=== PATIENT | female | born 1960 | race Caucasian/White ===

== ENCOUNTER 2020-06-23 11:23 | Emergency (ER) | payer OTHER ==
[~2020-06-23] VITALS: Ht 170.2 cm; Wt 92.0 kg
[2020-06-23 11:47] VITALS: BP 152/81
--- NOTE | 2020-06-23 13:03 | RAD ---
Three-view left foot study Clinical indications: Left foot pain FINDINGS: No acute fracture or dislocation or lytic process is seen. No periosteal reaction is eviden t. Tiny plantar spur of the calcaneus is seen. IMPRESSION: No acute osseous abnormality. Electronically signed by: Jas Mijares MD (06/23/2020 1:01 PM) [id number]
--- NOTE | 2020-06-23 13:39 | PHYS DOC ---
Past Medical History Past Medical History: Depression Past Surgical History: Tonsillectomy Additional Past Surgical Histo: craniotomy, R hand sx Smoking Status: Current Every Day Smoker Alcohol Use: Occasionally General Adult EDM: Chief Complaint: FOOT INJURY PAIN HPI: HPI: Patient is a 59 year old female who presents to the ED today complaining of a sharp constant 10 out of 10 left foot pain that began 2 months ago after she fell. Patient reports being seen at [facility] initially when the injury occurred, she states they did not do anything for her. Patient states the pain is worse on weightbearing. Denies anything relieving the pain. Review of Systems: Review of Systems: Constitutional: Denies fever or chills. [] Musculoskeletal: Reports left foot pain Integument: Denies rash. [] Neurologic: Denies headache, focal weakness or sensory changes. [] Psychiatric: Denies depression or anxiety. [] Heart Score: Risk Factors: Risk Factors: DM, Current or recent (<one month) smoker, HTN, HLP, family history of CAD, obesity. Risk Scores: Score 0 - 3: 2.5% MACE over next 6 weeks - Discharge Home Score 4 - 6: 20.3% MACE over next 6 weeks - Admit for Clinical Observation Score 7 - 10: 72.7% MACE over next 6 weeks - Early Invasive Strategies Allergies: Allergies: Allergies Coded Allergies Type Severity Reaction Last Updated Verified No Known Drug Allergies 06/23/20 No Physical Exam: PE: Constitutional: Well developed, well nourished, no acute distress, non-toxic appearance. [] [] Skin: Warm, dry, no erythema, no rash. [] Back: No tenderness, no CVA tenderness. [] Extremities: Left foot with no obvious deformity, no edema, no ecchymosis. Tenderness on top of the foot. No navicular bone tenderness, no tenderness on the base of the fifth metatarsal. Full range of motion to the foot and toes. +2 left pedal pulse. Cap refill less than 2 seconds to left toes Neurologic: Alert and oriented X 3, normal motor function, normal sensory function, no focal deficits noted. [] Psychologic: Affect normal, judgement normal, mood normal. [] Current Patient Data: Vital Signs: Vital Signs Date Time Temp Pulse Resp B/P (MAP) Pulse Ox O2 Delivery O2 Flow Rate FiO2 06/23/20 11:47 97.5 87 16 152/81 (104) 97 Room Air 97.5 EKG: EKG: [] Radiology/Procedures: Radiology/Procedures: []PATIENT: CYNTHIA BAL EACCOUNT: [id number]#: [id number] : 1960 LOCATION: ER AGE: 59 SEX: F EXAM STATUS: REG ER ORD. PHYSICIAN: NITA GUAJARDO APRN REASON: pain PROCEDURE: FOOT LEFT 3V Three-view left foot study Clinical indications: Left foot pain FINDINGS: No acute fracture or dislocation or lytic process is seen. No perios teal reaction is evident. Tiny plantar spur of the calcaneus is seen. IMPRESSION: No acute osseous abnormality. Electronically signed by: Jas Mijares MD (06/23/2020 1:01 PM) [id number] DICTATED and SIGNED BY: JAS MIJARES MD DATE: 06/23/20 [id number] 0 Course & Med Decision Making: Course & Med Decision Making Pertinent Labs and Imaging studies reviewed. (See chart for details) This is a 59-year-old female patient presenting to the ED today complaining of left foot pain for 2 months, reports falling 2 months ago. Right foot x-rays are negative for any acute findings, discharged to home. Follow-up with orthopedic doctor. Pavithra Disclaimer: Pavithra Disclaimer: This electronic medical record was generated, in whole or in part, using a voice recognition dictation system. Departure Departure Impression: Primary Impression: Fall Qualified Codes: W19.XXXD - Unspecified fall, subsequent encounter Additional Impression: Foot pain, left Disposition: 01 DC HOME SELF CARE/HOMELESS Referrals: CIRO MATTSON MD (PCP) AURELIA SAPP MD follow up in 1-2 weeks Patient Instructions: Musculoskeletal Pain Additional Instructions: You were seen for left foot pain, left foot x-rays are negative for any acute f indings. Please follow-up with the provided orthopedic doctor in 1 week NITA GUAJARDO APRN Jun 23, 2020 13:39
== END 2020-06-23 13:58 | disposition home or self-care (01) ==
LOC: ER 11:23
DX: G89.11 Acute pain due to trauma (principal); M79.672 Pain in left foot; F32.9 Major depressive disorder, single episode, unspecified; F17.200 Nicotine dependence, unspecified, uncomplicated; Z90.89 Acquired absence of other organs; Z98.890 Other specified postprocedural states; W18.39XA Other fall on same level, initial encounter; Y93.89 Activity, other specified; Y92.89 Other specified places as the place of occurrence of the external cause; Y99.8 Other external cause status
CPT/HCPCS: 73630; 99283